=== PATIENT | male | born 1995 | race Caucasian/White ===

== ENCOUNTER 2023-04-19 08:20 | Emergency (ER) | payer OTHER ==
[2023-04-19 08:46] VITALS: BP 119/78; PULSE 54; RESP 18; TEMP 98; BMI 26.4
== END 2023-04-19 08:44 | disposition home or self-care (01) ==
LOC: FER 08:20
DX: S60.931A Unspecified superficial injury of right thumb, initial encounter (principal); W45.8XXA Other foreign body or object entering through skin, initial encounter; Y99.0 Civilian activity done for income or pay
CPT/HCPCS: 99282-25